=== PATIENT | male | born 1935 | race Caucasian/White ===

== ENCOUNTER → 2017-02-02 | Outpatient (CLI) | payer BC ==
[~2017-02-02] MED LIST: CIPR-255 PO; CMD4 PO; DUTA0.5C PO; FEXO1TAB49 PO; FLAX SEED OIL PO; MULT-506 PO; OMEG10007 PO; OXYC-57 PO; OXYC7.5T65 PO; PHEN-775 PO; SILO8CAP PO; [UNRECOGNIZED DRUG - REMARK] PO
--- NOTE | 2017-02-02 11:29 | DIAGNOSTIC IMAGING REPORT ---
LEFT SHOULDER MIN 2 VIEWS ROUTINE CLINICAL HISTORY: Left shoulder pain status post fall. COMPARISON: None FINDINGS: Alignment of left shoulder is anatomic. There is evidence for distal left clavicular resection. There is no acute fracture. There is moderate arthritis of the left glenohumeral joint. IMPRESSION: 1. No acute fracture or dislocation of the left shoulder. 2. 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 Electronically signed by: Skinny Hoover M.D. 02/02/2017 11:27 AM Dictated Date/Time: 02/02/2017 11:25 AM
== END | disposition home or self-care (01) ==
LOC: C.RADBC 10:41
PROVIDERS: ATTEND Physician Assistant
DX: M25.512 Pain in left shoulder (principal); M19.90 Unspecified osteoarthritis, unspecified site

== ENCOUNTER → 2017-02-21 | Outpatient (CLI) | payer BC ==
--- NOTE | 2017-02-21 09:48 | DIAGNOSTIC IMAGING REPORT ---
LEFT CLAVICLE CLINICAL HISTORY: LEFT SHOULDER PAIN pain COMPARISON: None DISCUSSION: Evidence for moderate degenerative changes acromioclavicular joint. Moderate degenerative change left shoulder. A potential chronic grade 1 separation left acromioclavicular joint. There is no evidence for soft tissue swelling. IMPRESSION: Degenerative change left shoulder and left acromioclavicular joint. No acute bony abnormality. Possible grade 1 separation left acromioclavicular joint of uncertain age Electronically signed by: Ricardo Triana M.D. 02/21/2017 9:46 AM Dictated Date/Time: 02/21/2017 9:45 AM
--- NOTE | 2017-02-21 09:49 | DIAGNOSTIC IMAGING REPORT ---
LEFT SCAPULA CLINICAL HISTORY: LEFT SHOULDER PAIN pain COMPARISON: None. DISCUSSION: Possible grade 1 separation left acromioclavicular joint of uncertain age. Degenerative change glenohumeral joint. No well-defined evidence for fracture. Cortical margins appear to be intact. There is no evidence for soft tissue swelling. IMPRESSION: Degenerative change. No acute bony abnormality. Grade 1 separation left acromioclavicular joint of uncertain age. Electronically signed by: Ricardo Triana M.D. 02/21/2017 9:47 AM Dictated Date/Time: 02/21/2017 9:47 AM
--- NOTE | 2017-02-21 09:52 | DIAGNOSTIC IMAGING REPORT ---
LEFT RIBS UNILATERAL WITH PA CHEST CLINICAL HISTORY: LEFT SHOULDER PAIN COMPARISON STUDY: None FINDINGS: Negative study left ribs. No evidence for fracture. Cortical margins are intact. IMPRESSION: No acute process. Electronically signed by: Ricardo Triana M.D. 02/21/2017 9:51 AM Dictated Date/Time: 02/21/2017 9:50 AM
--- NOTE | 2017-02-21 09:52 | DIAGNOSTIC IMAGING REPORT ---
THORACIC SPINE 3 VIEWS ROUTINE CLINICAL HISTORY: LEFT SHOUDLER PAIN trauma. Left back, scapula and shoulder pain COMPARISON STUDY: No previous studies for comparison. FINDINGS: The paraspinal line is not displaced. There are mild multilevel degenerative changes. No acute fractures or traumatic subluxations are visualized. IMPRESSION: Mild degenerative change. No acute fractures or traumatic subluxations are visualized. Electronically signed by: Trever Monroy M.D. 02/21/2017 9:50 AM Dictated Date/Time: 02/21/2017 9:49 AM
== END | disposition home or self-care (01) ==
LOC: C.RADBC 09:05
PROVIDERS: ATTEND Physician Assistant Medical
DX: M25.512 Pain in left shoulder (principal); W19.XXXA Unspecified fall, initial encounter

== ENCOUNTER 2017-03-14 09:46 | Day surgery (SDC) | payer BC ==
[2017-03-01 13:43] VITALS: BMI 22.0
--- NOTE | 2017-03-01 14:05 | PAT Medication Instructions ---
Service Date March 01, 2017. Current Home Medication List Dutasteride (Avodart), 0.5 MG PO NOON Fexofenadine Hcl (Melissa Allergy), 1 TAB PO QAM Multivitamin (Multivitamin), 1 TAB PO QAM Silodosin (Rapaflo), 1 CAP PO NOON Medication Instructions For Your Scheduled Surgery - Hold the following medications the morning of surgery: Fexofenadine Hcl (Melissa Allergy), 1 TAB PO QAM Multivitamin (Multivitamin), 1 TAB PO QAM Dutasteride (Avodart), 0.5 MG PO NOON Silodosin (Rapaflo), 1 CAP PO NOON If you have any questions please call us at [phone] (Genevieve Solomon PA-C) or [phone] or [phone]
--- NOTE | 2017-03-01 14:57 | DIAGNOSTIC IMAGING REPORT ---
TWO VIEW CHEST CLINICAL HISTORY: Preoperative examination. FINDINGS: PA and lateral chest radiographs are obtained. No prior studies are available for comparison at the time of dictation. The cardiomediastinal silhouette is unremarkable. Emphysematous change is noted. There is chronic appearing interstitial thickening. No airspace consolidation or pleural effusion is identified. Linear atelectasis versus scarring is noted at the left lung base. There is no pneumothorax. The skeletal structures are osteopenic. The bony thorax appears intact. IMPRESSION: Emphysematous change with no active disease in the chest. Electronically signed by: Pola Dudley M.D. 03/01/2017 2:56 PM Dictated Date/Time: 03/01/2017 2:55 PM
[2017-03-01 15:06] LABS: URINE APPEARANCE CLEAR (CLEAR); URINE BILIRUBIN NEG (NEG); URINE COLOR YELLOW; URINE NITRITE NEG (NEG); URINE SPECIFIC GRAVITY 1.015 (1.000-1.030); UROBILINOGEN NEG (NEG)
[2017-03-01 15:13] LABS: MANUAL MICROSCOPIC REQUIRED? NO; REVIEW REQ? NO
[2017-03-01 15:17] LABS: BASO % 0.3 %; BASO ABS # 0.02 K/uL (0-0.2); COMPLETE YES; EOS % 2.8 %; HEMATOCRIT 43.2 % (42-52); IG% 0.1 %; LYMPH % 25.5 %; LYMPH ABS # 1.97 K/uL (1.2-3.4); MEAN CELL VOLUME 95.4 fL (80-100); MEAN CORPUSCULAR HEMOGLOBIN 32.2 pg (25-34); MEAN CORPUSCULAR HGB CONC 33.8 g/dl (32-36); MONO % 8.2 %; NEUT % 63.1 %; PLATELET COUNT 228 K/uL (130-400); RED BLOOD COUNT 4.53 M/uL (4.7-6.1); WHITE BLOOD COUNT 7.72 K/uL (4.8-10.8)
[2017-03-01 15:33] LABS: BUN/CREATININE RATIO 24.7 (10-20); CALCIUM 8.7 mg/dl (8.5-10.1); CREATININE 0.69 mg/dl (0.60-1.40); POTASSIUM 4.6 mmol/L (3.5-5.1)
[~2017-03-14] VITALS: Ht 177.8 cm; Wt 70.3 kg
[~2017-03-14 09:46] MED LIST changes: -CIPR-255 PO; +CIPROFLOXACIN / D5W 400 MG IV SCH; -CMD4 PO; -FLAX SEED OIL PO; +LACTATED RINGER'S 1000ML 1,000 ML IV SCH; -OMEG10007 PO; -OXYC-57 PO; -OXYC7.5T65 PO; -PHEN-775 PO; -[UNRECOGNIZED DRUG - REMARK] PO
[2017-03-14 10:48] VITALS: BP 167/76; PULSE 63; TEMP 36.6; O2SAT 97; Ht 177.8 cm; Wt 70.3 kg
--- NOTE | 2017-03-14 11:22 | History & Physical Bridge Note ---
H&P Re-Evaluation Bridge Note: I have examined the patient, reviewed the History & Physical and in the interval since the performance of the History & Physical I have noted the following changes of clinical significance: No changes noted
[2017-03-14] MEDS ORDERED: ONDANSETRON INJ 2 MG/ML 2 ML VIAL IV PRN (13:45)
[2017-03-14] MEDS ORDERED: EpHEDrine SULFATE INJ 50 MG/ML AMP IV PRN (13:45)
[2017-03-14] MEDS ORDERED: HYDROmorphone INJ 2 MG/ML SYR/VIAL IV PRN (13:45)
[2017-03-14] MEDS ORDERED: PHENYLEPHRINE 100MCG/ML 5ML SYR IV PRN (13:45)
[2017-03-14] MEDS ORDERED: ATROPINE SULFATE 0.1 MG/ML 5ML SYR IV PRN (13:45)
[2017-03-14] MEDS ORDERED: FENTANYL CITRATE INJ 50 MCG/1 ML 2 ML VIAL ONE (13:54)
[2017-03-14] MEDS ORDERED: LIDOCAINE HCL 2% 2 ML VIAL (20MG/ML) ONE (14:54)
[2017-03-14] MEDS ORDERED: ONDANSETRON INJ 2 MG/ML 2 ML VIAL ONE (14:54)
[2017-03-14] MEDS ORDERED: PROPOFOL IV EMULSION 10 MG/ML 20 ML VIAL IV ONE (14:54)
[2017-03-14] MEDS ORDERED: DEXAMETHASONE SOD INJ 4 MG/ML VIAL ONE (14:54)
[2017-03-14] MEDS ORDERED: EpHEDrine SULFATE INJ 50 MG/ML AMP ONE (14:56)
[2017-03-14] MEDS ORDERED: SODIUM CHLORIDE 0.9% INJ 10 ML VIAL ONE (15:00)
[2017-03-14] MEDS ORDERED: BELLADONNA/OPIUM SUPP 60 MG SUPP PR ONE ×2 (15:00→15:14)
[2017-03-14] MEDS ORDERED: CIPR-255 PO (15:11)
[2017-03-14] MEDS ORDERED: OXYC7.5T65 PO (15:11)
[2017-03-14] MEDS ORDERED: PHEN-775 PO (15:11)
--- NOTE | 2017-03-14 15:14 | Discharge Instructions ---
Discharge Instructions Date of Service Mar 14, 2017. Admission Reason for Admission: Benign Prostatic Hypertrophy Discharge Discharge Diagnosis / Problem: BPH s/p GLTURP Discharge Goals Goal(s): Improve function, Improve disease control, Therapeutic intervention Activity Recommendations Activity Limitations: per Instructions/Follow-up section Lifting Limitations: no more than 25 pounds, gradually increase as tolerated ( x 5-7 days) Exercise/Sports Limitations: rest today (x 5-7 days) May Resume Sexual Activity: after two weeks Shower/Bathe: no limitations Driving or Machine Use: resume 3 days after discharge (after bond catheter out ) . Instructions / Follow-Up Instructions / Follow-Up As scheduled in office for removal of bond catheter Discharge Diet Recommended Diet: Regular Diet (good fluid intake) Procedures Procedures Performed: GLTURP Pending Studies Studies pending at discharge: no Medical Emergencies . Who to Call and When: Medical Emergencies: If at any time you feel your situation is an emergency, please call 911 immediately. . Non-Emergent Contact Non-Emergency issues call your: Urologist Call Non-Emergent contact if: you have a fever, temperature is above 101, your pain is not controlled, your pain is worsening, your pain is unusual for you, your pain is concerning you, wound has increased drainage, wound has increased redness, wound has increased pain, you have any medication questions . . "Provider Documentation" section prepared by Sixto Diaz. . VTE Core Measure Inpt VTE Proph given/why not?: SCD's [place] Drug Monitoring Program Search Results: patient reviewed within database, no issues identified
[2017-03-14] MEDS ORDERED: OXYCODONE/ACETAMINOPHEN 5-325 TAB PO PRN (15:15)
[2017-03-14] MEDS ORDERED: PHENAZOPYRIDINE HCL 200 MG TAB PO PRN (15:15)
--- NOTE | 2017-03-14 15:15 | [facility] Post Operative Brief Note ---
Immediate Operative Summary Operative Date Mar 14, 2017. Pre-Operative Diagnosis Benign prostatic hyperplasia with urinary obstruction Post-Operative Diagnosis Same Procedure(s) Performed GLTURP Surgeon Dr. Duncan Diaz Piano Stringer Surgeon(s) NA Estimated Blood Loss Min Findings Open fossa after completion, 36K J used Specimens no specimen per surgeon Drains 20 fr 10 cc H2O Anesthesia GALMA Complication(s) None Disposition Recovery Room / PACU
--- NOTE | 2017-03-14 16:01 | Anesthesiology Progress Note ---
Anesthesia Post Op Note Date & Time Mar 14, 2017 at 16:01 Vital Signs Pain Intensity: 0 Vital Signs Past 12 Hours Date Time Temp Pulse Resp B/P (MAP) Pulse Ox O2 Delivery O2 Flow Rate FiO2 03/14/17 15:50 69 14 134/77 95 Room Air 03/14/17 15:40 70 12 142/79 100 Mask 10 03/14/17 15:30 72 18 143/76 100 Mask 10 03/14/17 15:24 36.9 71 16 133/75 100 Mask 10 03/14/17 10:48 36.6 63 18 167/76 (106) 97 Room Air Notes Mental Status: alert / awake / arousable, participated in evaluation Pt Amnestic to Procedure: Yes Nausea / Vomiting: adequately controlled Pain: adequately controlled Airway Patency, RR, SpO2: stable & adequate BP & HR: stable & adequate Hydration State: stable & adequate Anesthetic Complications: no major complications apparent
[2017-03-14 16:05] VITALS: BP 152/80; PULSE 70; TEMP 36.4; O2SAT 96
[2017-03-14 16:35] VITALS: BP 166/76; PULSE 68; O2SAT 95
[2017-03-14 17:05] VITALS: BP 167/82; PULSE 68; TEMP 36.3; O2SAT 97
--- NOTE | 2017-03-14 20:35 | OPERATIVE REPORT ---
DATE OF OPERATION: 03/14/2017 PREOPERATIVE DIAGNOSIS: Benign prostatic hypertrophy with urinary obstruction. POSTOPERATIVE DIAGNOSIS: Same. PROCEDURE: GreenLight vaporization of the prostate gland. SURGEON: Sixto Diaz MD OCCUPATIONAL HEALTH NURSE SUPERVISOR: None. ANESTHESIA: General anesthesia with laryngeal mask. COMPLICATIONS: None. FINDINGS: Open prostatic fossa after completion of case, 36,000 joules of energy used. DRAINS LEFT IN PLACE: Include a 20-Lithuanian Null catheter with 10 mL of sterile water in the balloon. ESTIMATED BLOOD LOSS: Minimal. BRIEF HISTORY: Mr. Ronquillo is a pleasant 81-year-old male, who has been maintained on maximum medical therapy for BPH with Rapaflo and dutasteride, but continues to have difficulties with his voiding. Please see H&P for further details. After discussion of risks and benefits of various forms of intervention, he has decided upon GreenLight vaporization of the prostate gland to assist with his disease. Office cystoscopy has demonstrated BPH which appears to be amenable to surgical intervention. Intravenous ciprofloxacin has been provided for antibiotic coverage and SCDs used for DVT prophylaxis. DESCRIPTION OF PROCEDURE: The patient was properly identified and brought to the operative suite after identification of appropriate consent on the chart, general anesthesia with laryngeal mask was initiated. The patient was prepped and draped in standard fashion for this procedure. realtime court reporter-out procedure was followed. A GreenLight laser resectoscope was advanced into the bladder under direct visualization. Bladder was surveyed in its entirety demonstrating normal ureteral orifices in normal anatomic position, well removed from the bladder neck and obstructive prostate gland as previously appreciated. Grade 1-2 trabeculation with no intravesical lesions, papillary masses or calculi. Using the side fire GreenLight laser resectoscope, circumferential vaporization of the prostate was performed. Care was taken to avoid any resection distal to the verumontanum to avoid damage to the sphincter. Relaxing incisions at the 5 and 7 o'clock position were made at the bladder neck to avoid a bladder neck contracture in the future. Ureteral orifices were noted to be free of any injury at the end of the case. After completion of 36,000 joules of energy resection, the patient was noted to have a visually unobstructed prostate gland with excellent hemostasis and no significant residual tissue. Bladder was partially distended and resectoscope was removed. A 20-Lithuanian Null catheter was placed over the catheter guide with return of clear urine within the bladder. Ten mL of sterile water replaced in balloon and catheter was placed to gravity drainage. Belladonna and opium suppository was provided for additional postoperative analgesia. Anesthesia was reversed. The patient was transferred to recovery room in stable condition. FOLLOWUP CARE: The patient will be discharged home with a Null catheter in place. Prescription for Percocet, Pyridium and ciprofloxacin was provided. Outpatient trial of void is confirmed as well as postoperative appointment. The patient is instructed to contact our service with any fevers, chills, nausea, vomiting or other significant difficulties in the postoperative care. I attest to the content of the Intraoperative Record and any orders documented therein. Any exceptions are noted below. MTDD
== END 2017-03-14 17:09 | disposition home or self-care (01) ==
LOC: C.ACU 09:46
PROVIDERS: ATTEND Urology
DX: N40.1 Benign prostatic hyperplasia with lower urinary tract symptoms (principal); N13.8 Other obstructive and reflux uropathy; R97.20 Elevated prostate specific antigen [PSA]; M16.9 Osteoarthritis of hip, unspecified; H91.90 Unspecified hearing loss, unspecified ear; G25.81 Restless legs syndrome; Z91.81 History of falling; Z82.49 Family history of ischemic heart disease and other diseases of the circulatory system; Z96.652 Presence of left artificial knee joint

== ENCOUNTER → 2017-05-27 | Outpatient (CLI) | payer BC ==
[~2017-05-27] MED LIST changes: +CIPR-255 PO; -CIPROFLOXACIN / D5W 400 MG IV SCH; -LACTATED RINGER'S 1000ML 1,000 ML IV SCH; +OXYC7.5T65 PO
[2017-05-27 10:42] LABS: BLOOD UREA NITROGEN 16 mg/dl (7-18); BUN/CREATININE RATIO 22.8 (10-20); CHOLESTEROL 230 mg/dl (0-200); CREATININE 0.69 mg/dl (0.60-1.40)
[2017-05-27 10:45] LABS: CHOLESTEROL/HDL RATIO 3.1; HDL CHOLESTEROL 75 mg/dl; LDL CHOLESTEROL CALCULATED 142 mg/dl; PROSTATE SPECIFIC ANTIGEN 0.813 ng/ml (0.000-4.000); TRIGLYCERIDES 65 mg/dl (0-150); VERY LOW DENSITY LIPOPROT CALC 13 mg/dl
== END | disposition home or self-care (01) ==
LOC: C.LABBC 06:59
PROVIDERS: ATTEND Urology
DX: Z00.00 Encounter for general adult medical examination without abnormal findings (principal); R35.1 Nocturia

== ENCOUNTER → 2018-05-04 | Outpatient (CLI) | payer BC ==
[~2018-05-04] MED LIST changes: -OXYC7.5T65 PO
[2018-05-04 13:28] LABS: BLOOD UREA NITROGEN 18 mg/dl (7-18); CREATININE 0.73 mg/dl (0.60-1.40)
== END | disposition home or self-care (01) ==
LOC: C.LABBC 10:22
PROVIDERS: ATTEND Nurse Practitioner Adult Health
DX: N40.1 Benign prostatic hyperplasia with lower urinary tract symptoms (principal); R97.20 Elevated prostate specific antigen [PSA]

== ENCOUNTER → 2018-05-12 | Outpatient (CLI) | payer BC ==
[2018-05-12 10:42] LABS: BASO % 0.4 %; BASO ABS # 0.02 K/uL (0-0.2); EOS % 3.9 %; EOS ABS # 0.19 K/uL (0-0.5); HEMATOCRIT 43.1 % (42-52); HEMOGLOBIN 14.6 g/dL (14.0-18.0); LYMPH % 31.8 %; LYMPH ABS # 1.55 K/uL (1.2-3.4); MEAN CELL VOLUME 95.1 fL (80-100); MEAN CORPUSCULAR HEMOGLOBIN 32.2 pg (25-34); MEAN CORPUSCULAR HGB CONC 33.9 g/dl (32-36); MEAN PLATELET VOLUME 11.4 fL (7.4-10.4); MONO % 10.3 %; NEUT % 53.6 %; NEUT ABS # 2.61 K/uL (1.4-6.5); PLATELET COUNT 246 K/uL (130-400); RED CELL DISTRIBUTION WIDTH SD 45.1 fL (36.4-46.3); WHITE BLOOD COUNT 4.87 K/uL (4.8-10.8)
[2018-05-12 11:07] LABS: ALBUMIN 3.5 gm/dl (3.4-5.0); ALKALINE PHOSPHATASE 67 U/L (45-117); ALT/SGPT 32 U/L (12-78); AST/SGOT 29 U/L (15-37); BLOOD UREA NITROGEN 16 mg/dl (7-18); CALCIUM 8.5 mg/dl (8.5-10.1); CARBON DIOXIDE 27 mmol/L (21-32); CHOLESTEROL 186 mg/dl (0-200); CREATININE 0.72 mg/dl (0.60-1.40); GLUCOSE 91 mg/dl (70-99); LDL CHOLESTEROL CALCULATED 105 mg/dl; POTASSIUM 4.1 mmol/L (3.5-5.1); SODIUM 136 mmol/L (136-145); TOTAL PROTEIN 6.9 gm/dl (6.4-8.2)
== END | disposition home or self-care (01) ==
LOC: C.LABBC 07:07
PROVIDERS: ATTEND Nurse Practitioner Adult Health
DX: G25.81 Restless legs syndrome (principal); M15.9 Polyosteoarthritis, unspecified; Z13.220 Encounter for screening for lipoid disorders

== ENCOUNTER 2018-05-26 19:52 | Emergency (ER) | payer BC ==
[~2018-05-26] VITALS: Ht 175.3 cm; Wt 71.1 kg
[2018-05-26 20:01] VITALS: Ht 175.3 cm; Wt 71.1 kg
[2018-05-26] MEDS ORDERED: LIDOCAINE/EPINEPH/TETRACAINE 1 EA SYR EXT STA (20:20)
[2018-05-26] MEDS ORDERED: LIDO/EPINEPHRINE/SOD BICARB 20 ML VIAL INFIL ONE (20:30)
--- NOTE | 2018-05-26 21:09 | DIAGNOSTIC IMAGING REPORT ---
CT OF THE HEAD WITHOUT CONTRAST CLINICAL HISTORY: Head injury. Forehead laceration. COMPARISON STUDY: No previous studies for comparison. CT DOSE: 962.76 mGy.cm TECHNIQUE: Helical axial images of the head were obtained without IV contrast. Automated exposure control was utilized for the study. A dose lowering technique was utilized adhering to the principles of ALARA. FINDINGS: No acute intracranial hemorrhage, midline shift or mass effect is present. Ventricular system is normal for age. Basilar cisterns are patent. There are no extra-axial collections. White matter hypodensity suggests small vessel disease. A forehead laceration is noted. There is no calvarial fracture. IMPRESSION: 1. No acute intracranial findings. 2. Forehead laceration. No calvarial fracture. Electronically signed by: Skinny Hoover M.D. 05/26/2018 9:08 PM Dictated Date/Time: 05/26/2018 9:06 PM
--- NOTE | 2018-05-26 21:12 | DIAGNOSTIC IMAGING REPORT ---
CT OF THE CERVICAL SPINE WITHOUT CONTRAST CLINICAL HISTORY: Trauma. COMPARISON STUDY: No previous studies for comparison. TECHNIQUE: Helical axial images of the cervical spine were obtained without IV contrast. Sagittal and coronal reconstructions were viewed. A dose lowering technique was utilized adhering to the principles of ALARA. FINDINGS: Alignment of the cervical spine is anatomic. The craniocervical junction is intact. There is no acute cervical spine fracture. There is moderate to severe multilevel facet arthrosis and moderate multilevel degenerative disc disease. There is no prevertebral edema. IMPRESSION: No acute cervical spine fracture or subluxation. Electronically signed by: Skinny Hoover M.D. 05/26/2018 9:10 PM Dictated Date/Time: 05/26/2018 9:08 PM
--- NOTE | 2018-05-26 22:31 | EMERGENCY ROOM VISIT NOTE ---
History First contact with patient: 20:12 Chief Complaint: LACERATION/CUT (SUT/DERMABOND) Stated Complaint: CUT ON HEAD Nursing Triage Summary: Pt tripped and fell. Pt hit his forehead off concrete. Pt has cut to his forehead and abrasions to bilateral knees. History of Present Illness The patient is a 82 year old male who presents to the Emergency Room with complaints of a head injury and laceration that he sustained prior to arrival. The patient was walking with many items in his hands. He tripped and fell striking his head off the ground. There is no loss of consciousness. He denies any significant headache or neck pain. No nausea or dizziness. No changes in vision. The patient does not take any blood thinners. He denies any other injuries. His tetanus shot is up-to-date. Review of Systems 10 system review negative. Please see pertinent positives in the history of present illness section. Past Medical/Surgical History Otherwise healthy Status post left knee replacement Social History Smoking Status: Never Smoker Marital Status: Current/Historical Medications Scheduled Ciprofloxacin Hcl (Cipro), 500 MG PO BID Dutasteride (Avodart), 0.5 MG PO NOON Fexofenadine Hcl (Melissa Allergy), 1 TAB PO QAM Multivitamin (Multivitamin), 1 TAB PO QAM Silodosin (Rapaflo), 1 CAP PO NOON Physical Exam Vital Signs Date Time Temp Pulse Resp B/P (MAP) Pulse Ox O2 Delivery O2 Flow Rate FiO2 05/26/18 22:48 36.8 72 18 137/75 96 05/26/18 20:01 36.8 72 18 137/75 96 Room Air Physical Exam VITALS: Vitals are noted on the nurse's note and reviewed by myself. Vital signs stable. GENERAL: 82-year-old male, in no acute distress, nondiaphoretic, well-developed well-nourished. SKIN: There is a 4 cm Y-shaped laceration in the middle of the forehead. The edges gape apart with traction. There is mild oozing of blood. No bone noted at the base of the wound. HEAD: Laceration as noted above. No olivo signs or raccoon eyes. EARS: External auditory canals clear, tympanic membranes pearly chung without erythema or effusion bilaterally. EYES: Pupils equal round and reactive to light and accommodation. Conjunctivae without injection, sclerae without icterus. Extraocular movements intact. NECK: Supple without nuchal rigidity. Cervical spine is nontender. Full range of motion of the neck MUSCULOSKELETAL: No muscle atrophy, erythema, or edema noted. Normal gait. Strength 5/5 throughout. NEURO: Patient was alert and oriented to person place and time. Normal sensation to touch. No focal neurological deficits. Medical Decision & Procedures ER Provider Diagnostic Interpretation: CT head and neck without contrast IMPRESSION: 1. No acute intracranial findings. 2. Forehead laceration. No calvarial fracture. Electronically signed by: Skinny Hoover M.D. 05/26/2018 9:08 PM Dictated Date/Time: 05/26/2018 9:06 PM IMPRESSION: No acute cervical spine fracture or subluxation. Electronically signed by: Skinny Hoover M.D. 05/26/2018 9:10 PM Dictated Date/Time: 05/26/2018 9:08 PM Medications Administered Medications (Trade) Dose Ordered Sig/Ban Route Start Time Stop Time Status Last Admin Dose Admin Lidocaine/ Epinephrine (Buffered Xylocaine/ Epinephrine 1% Inj) 20 ml NOW ONCE INFIL 05/26/18 20:30 05/26/18 20:31 DC 05/26/18 20:27 20 ML Tetracaine/ Epinephrine/ Lidocaine (L.e.t. Gel 4%/ 1:100/0.5%) 1 ea NOW STAT EXT 05/26/18 20:20 05/26/18 20:22 DC 05/26/18 20:27 1 EA Procedure Verbal consent was obtained to perform the procedure. Using sterile technique the wound was cleaned with Betadine. The area was sterilely draped. 4 ml of 1 % buffered lidocaine with epinephrine was used to anesthetize the laceration. Once the patient was anesthetized, the wound was copiously irrigated under pressure with sterile saline. The wound was explored and there were no deep structures injured such as tendons, bone, or significant blood vessels. The laceration was repaired using 13 simple interrupted 6-0 nylon sutures with the wound edges being well approximated. The patient tolerated the procedure well. Hemostasis was achieved. The area was cleaned with sterile saline and dressed with bacitracin ointment and bandage. ED Course The patient was seen and examined He declined pain medication Imaging was performed and reviewed The laceration was repaired. Please see my procedure note. The patient tolerated the procedure well. Discharge instructions were reviewed, and he was discharged in good condition Medical Decision Differential diagnosis: Laceration, skull fracture, intracranial bleed, neck injury and others were entertained This patient is an 82-year-old male presents to the emergency department with a mechanical fall/laceration to the forehead that occurred prior to arrival. The patient did not have any signs of significant head trauma. He also denied any neck pain. Imaging was performed and negative for any acute findings. The laceration was repaired as noted above. The patient was counseled on signs of infection. He will return with any concerning symptoms. This chart was completed in part utilizing [employer] Voice Recognition software. Attempts were made to minimize the grammatical errors, random word insertions, pronoun errors and incomplete sentences. Any formal questions or concerns about the content, text or information contained within the body of this dictation should be directly addressed to the provider for clarification. Medication Reconcilliation Current Medication List: was personally reviewed by me Blood Pressure Screening Patient's blood pressure: Normal blood pressure Impression Primary Impression: Laceration Departure Information Dispostion Home / Self-Care Condition GOOD Referrals Mague Champagne CRNP (PCP) Patient Instructions My [facility] Additional Instructions Keep wound clean. It is okay to gently wash the area with soapy water. Do not submerse it in water for long periods of time such as swimming, going in hot tubs or taking baths until the sutures come out. Do not allow any crusting or dried blood to accumulate on sutures. If this occurs, use a 1:1 solution of hydrogen peroxide/water on a Q-tip to clean the wound. Use an antibiotic ointment for 2 days, then let wound dry. Suture removal in 7 days. Return sooner for any signs of infection (increasing redness, swelling, drainage). Please apply ice for 20 minute intervals over the next 48 hours It was a pleasure participating in your care this evening
[2018-05-26 22:48] VITALS: BP 137/75; PULSE 72; TEMP 36.8; O2SAT 96
== END 2018-05-26 22:48 | disposition home or self-care (01) ==
LOC: C.EDB 19:53 → C.EDD 22:48
DX: S01.81XA Laceration without foreign body of other part of head, initial encounter (principal); W01.198A Fall on same level from slipping, tripping and stumbling with subsequent striking against other object, initial encounter; Z79.899 Other long term (current) drug therapy